=== PATIENT | male | born 1950 | race Caucasian/White ===

== ENCOUNTER 2016-08-22 13:38 | Observation (INO) | payer OTHER, MEDICARE ==
[2016-08-22] MEDS ORDERED: IBUPROFEN 400 MG TABLET PO ONE (13:49)
[2016-08-22 14:13] LABS: Hemoglobin 15.1 gm/dL (13.5-18.0); Mean Cell Volume 91.6 fl (78-100); Mean Corpuscular Hemoglobin 30.8 pg (27-31); Mean Corpuscular Hgb Conc 33.6 g/dl (32-36); Mean Platelet Volume 9.6 fl (6.0-9.5); Neutrophil # 13.7 K/mm3 (1.3-6.0); Neutrophil % 83.4 % (42-75.0); Platelet Count 200 K/mm3 (150-450); Red Blood Count 4.91 M/mm3 (4.7-6.0); Red Cell Distribution Width 14.6 % (11.5-14.0); White Blood Count 16.4 K/mm3 (4.0-10.5)
[2016-08-22 14:22] LABS: BUN/Creatinine Ratio 14.5 (9.0-21.6); Blood Urea Nitrogen 16 mg/dL (6-23); Calcium * 9.6 mg/dL (7.9-10.9); Carbon Dioxide 24.4 mmol/L (24-32.6); Chloride 103 mmol/L (97-106); Glucose * 171 mg/dL (70-110); Potassium 5.4 mmol/L (3.4-4.6); Sodium 138 mmol/L (132-142)
[2016-08-22] MEDS ORDERED: IBUPROFEN 400 MG TABLET ONE (14:58)
[2016-08-22 15:20] LABS: ALT 34 U/L (19-67); AST 28 U/L (0-48); Albumin * 3.6 gm/dl (3.4-5.0); Alkaline Phosphatase * 86 U/L (50-170); Bilirubin, Total 0.7 mg/dL (0.0-1.1); Ca. Corrected For Albumin 9.6 mg/dL (8.4-10.2); Total Protein 7.9 gm/dL (6.2-8.2)
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
[2016-08-22] MEDS ORDERED: NORMAL SALINE 1,000 ML IV ONE ×2 (15:28→18:28)
[2016-08-22] MEDS ORDERED: RINGERS SOLUTION,LACTATED 1,000 ML IV ONE (16:45)
[2016-08-22 19:11] LABS: Urine Appearance Clear; Urine Color Yellow
[2016-08-22 19:12] LABS: Urine Bacteria 1+; Urine Bilirubin Negative (NEGATIVE); Urine Blood Negative /ul (NEGATIVE); Urine Ketone Negative (NEGATIVE); Urine Nitrite Negative (NEGATIVE); Urine Protein Negative (NEGATIVE); Urine RBC None Seen /hpf (0-5); Urine Urobilinogen Normal (NORMAL); Urine WBC 0-5 /hpf (0-5); Urine pH 5.5 pH (5.0-7.0)
[2016-08-22] MEDS ORDERED: COLCHICINE 0.6 MG TABLET PO PRN (20:52)
[2016-08-22] MEDS ORDERED: HYDROPHILIC OINTMENT 454 APPL JAR TP PRN (20:52)
[2016-08-22] MEDS ORDERED: ACETAMINOPHEN 325 MG TABLET PO PRN (20:54)
[2016-08-22] MEDS ORDERED: CYANOCOBALAMIN 1,000 MCG/ML VIAL IM SCH (21:00)
[2016-08-22] MEDS ORDERED: SIMVASTATIN 20 MG TABLET PO SCH (21:00)
[2016-08-22] MEDS ORDERED: CAPSAICIN 60 APPL TUBE TP PRN (22:21)
--- NOTE | 2016-08-22 22:23 | HP ---
Chief Complaint - Chief Complaint Date of Service: 08/22/16 Time of Service: 22:20 Chief Complaint: s/p fall History of Present Illness: Pt is 66 year old male who is usually seen at the [place] for all his care who presented to the ER with left knee pain s/p fall. PMH is significant for:COPD, MONTY (on CPAP, ) He states he fell Tuesday afternoon, landing on his left knee. He states that he was stuck down landing on his bent knee for about 20minutes. Following this incident he was able to ambulate on the leg, although he admits never having very good ROM or being able to ambulate very far d/t dyspnea. Pt woke up Tuesday around 10am and was unable to bear weight on his leg. Stating it took him almost twenty minutes to get from his bedroom to living room. Once he finally made it out there he attempted to turn around and sit in his recliner, but unfortunately his leg gave out and he slide onto the floor and was unable to get up. He had been applying ice and Bengay on it without relief. Does endorse years ago injuring the same leg when he stepped into a hole. He currently uses a four pronged cane to ambulate. Knee xray showed sever arthritic changes, however no acute processes. He will be admitted to observation overnight for pain management and PT. - Patient's Past Medical History Patient History - Medical: Arthritis, Diabetes Type 2 Insulin Dependent, Obesity , Other - neuropathy Patient History - Cardiac/Respiratory: COPD, Hypertension, Hyperlipidemia, Home O2 Use - 3L PRN, CPAP/BiPAP Home Use, Sleep Apnea Patient History - Cancer: No Hx of Cancer Patient History - Surgical Procedures: Other - R knee surgery Patient History - Other: None - Family History Mother Family History - Medical: Family History - Cardiac/Respiratory: No pertinent hx Family History - Cancer: Bone, Breast Father Family History - Medical: Family History - Cardiac/Respiratory: Coronary Heart Disease, CHF, Valvular Heart Disease - Social History Living Situations: home Does anyone smoke in the home?: No Smoking Status: Former smoker Have you smoked in the past 12 months: No Do you dip or chew tobacco: No Smoking Stop Date: 08/16/16 Patient requests Smoking Cessation Consult: No Initiate information on Smoking Cessation: No Alcohol Use: none Drug Use: none - Immunizations Immunizations Up to Date: Yes Hx Pneumococcal Vaccination: Yes History of Influenza Vaccine: Yes Review Of Systems (GEN) - Review of Systems Generalized/Overall Review: Present: No Symptoms Reported EENTM: Present: No Symptoms Reported Respiratory: Present: Shortness of Breath, Orthopnea, Wheezing Abdominal: Present: No Symptoms Reported Genitourinary: Present: No Symptoms Reported Musculoskeletal: Present: Joint Pain - right knee Neurological: Present: No Symptoms Reported Skin: Present: No Symptoms Reported Allergies/Adverse Reactions: Allergies Allergy/AdvReac Type Severity Reaction Status Date / Time penicillin G Allergy Unknown Hives Verified 08/22/16 23:53 Home Medications: HOME MEDICATIONS Albuterol Sulfate 2.5 mg IH TID PRN 05/08/13 [Last Taken Unknown] Colchicine 0.6 mg PO BID PRN 05/08/13 [Last Taken Unknown] Cyanocobalamin [Vitamin B-12] 1,000 mcg IM Q30D 05/08/13 [Last Taken 05/07/13 08 :00] Furosemide [Lasix] 20 mg PO DAILY 05/08/13 [Last Taken 05/06/13 22:00] HYDROcodone/ACETAMINOPHEN [Vicodin 5-325] 1 each PO Q4H PRN 05/08/13 [Last Taken 05/07/13 22:30] Hydrophilic Ointment [Aquaphilic Ointment] 1 appl TP BID PRN 05/08/13 [Last Taken Unknown] Insulin Aspart [Novolog] 40 unit SQ AC 05/08/13 [Last Taken 05/07/13 22:00] Insulin Glargine,Hum.rec.anlog [Lantus Solostar] 68 unit SQ BID 05/08/13 [Last Taken 05/07/13 22:00] Lisinopril [Zestril] 5 mg PO DAILY 05/08/13 [Last Taken 05/08/13 08:00] Ofloxacin [Floxin Otic] 3 drop EACH EAR BID 05/08/13 [Last Taken Unknown] Pregabalin [Lyrica] 100 mg PO BID 05/08/13 [Last Taken 05/08/13 08:00] Simvastatin [Zocor] 10 mg PO HS 05/08/13 [Last Taken 05/07/13 22:00] Tamsulosin HCl 0.4 mg PO DAILY 05/08/13 [Last Taken 05/08/13 08:00] Tiotropium [place] [Spiriva] 1 cap IH DAILY 05/08/13 [Last Taken 05/07/13 22:00] Trazodone HCl 100 mg PO HS 05/08/13 [Last Taken 05/08/13 00:00] Capsaicin 1 appl TP TID PRN 05/09/13 [Last Taken Unknown] Miconazole Nitrate 1 appl TP BID 05/09/13 [Last Taken Unknown] Mometasone/Formoterol [Dulera 100 Mcg/5 Mcg Inhaler] 1 inh IH BID 05/09/13 [ Last Taken Unknown] metFORMIN HCL [Glucophage] 1,000 mg PO BIDWM 05/09/13 [Last Taken Unknown] Cefuroxime Axetil [Ceftin] 500 mg PO BID #20 tab 08/22/16 [Last Taken Unknown] Exam - Exam Vital Signs: Vital Signs - Last Taken Temp 38.2 C H 08/22/16 14:31 Pulse 91 08/22/16 20:23 Resp 14 08/22/16 20:23 BP 111/46 08/22/16 20:23 Pulse Ox 94 08/22/16 20:23 Constitutional: Present: Alert, Oriented x3, Cooperative, No distress, Morbidly obese ENT Exam: Present: normal ENT inspection, hard of hearing, dry mucous membranes Eye Exam: bilateral eye: normal inspection, PERRL Respiratory: Present: chest non-tender, no accessory muscle use, decreased breath sounds, wheezing, expiration (prolonged) Cardiovascular/Chest: Present: normal peripheral pulses, regular rate, rhythm, no chest tenderness, no edema, no murmur Peripheral Pulses: dorsalis-pedis (R): 2+, dorsalis-pedis (L): 2+, radial (R): 2 +, radial (L): 2+ Abdomen: Present: Normal bowel sounds, soft, nontender, nondistended, no rebound tenderness Skin Exam: Present: normal color, warm/dry, no cyanosis Neurologic: Present: no motor/sensory deficits, alert, normal mood/affect, oriented x 3 Appearance: Present: appropriate appearance, appropriate insight, neat, no memory impairment Eye contact: Present: cooperative, good eye contact, normal speech Thoughts: Present: normal thought pattern, no apparent hallucination Diagnostic Studies: Laboratory Results Laboratory Tests 0108/22/16 08/22/16 14:07 14:07 14:07 WBC 16.4 H Hgb 15.1 Hct 45.0 Neutrophils % 83.4 H Neutrophils # 13.7 H Sodium 138 Potassium 5.4 H BUN 16 Creatinine 1.10 Random Glucose 171 H Lactic Acid, Venous 2.3 H* Creatine Kinase Urine Bacteria Influenza Type A Ag Influenza Type B Ag Group A Strep Rapid 08/22/16 08/22/16 08/22/16 14:07 15:00 15:12 WBC Hgb Hct Neutrophils % Neutrophils # Sodium Potassium BUN Creatinine Random Glucose Lactic Acid, Venous Creatine Kinase 491 H Urine Bacteria Influenza Type A Ag Negative Influenza Type B Ag Negative Group A Strep Rapid Negative 08/22/16 08/22/16 08/22/16 17:56 18:49 19:40 WBC Hgb Hct Neutrophils % Neutrophils # Sodium Potassium BUN Creatinine Random Glucose Lactic Acid, Venous 2.3 H* 1.7 Creatine Kinase Urine Bacteria 1+ H Influenza Type A Ag Influenza Type B Ag Group A Strep Rapid Assessment/Plan - Assessment/Plan (1) Left knee injury Assessment: Pt unable to bear weight on lower extremity. Due to morbid obesity, pt is unable to ambulate safely on one leg, will be admitted to observation overnight for safety. No acute abnormalities noted on the xray. Severe arthritis noted however. Will treat with RICE. Consult PT/OT in the am. CM consult to assist with further needs since [facility] is [facility]. -Elevate on 2 pills -Markel wrap -Ice PRN -Ibuprofen PRN for pain -PT/OT consult -CM consult Problem: Acute (2) MONTY (obstructive sleep apnea) Assessment: Stable -CPAP at home setting HS -maintain o2 >88% Problem: Chronic (3) DM2 (diabetes mellitus, type 2) Assessment: Stable -Accu checks ac/hs -Consistent carb diet -Lantus 68units BID -Novolog 40units AC -Glucophage 1000mg daily Problem: Chronic (4) HTN (hypertension) Assessment: Stable -VS Q6H -Zestril 5mg Q day Problem: Acute (5) COPD (chronic obstructive pulmonary disease) Assessment: Stable -Spirica 1puff Qday -Bulera BID -Albuterol PRN wheezing Problem: Chronic (6) UTI (urinary tract infection) Assessment: UA with only +1 bacteria, no other s/s of infection. Pt is without polyuria, dysuria, or flank pain, procalcitonin .06. Do not suspect UTI, will dc antibiotics. Leukocytosis, lactic acidosis with gap, and elevated CK likely the from pt being down for an extended period of time although do not suspect rhabdomyolysis. Will treat with IVF over night. Bojorquez in place draining clear yellow urine for accurate I/O. -Bojorquez -Strict i/o -MIVF NS 125ml/hr -DC antibiotics -CBC/CMP, CK in am -Urine culture pending Problem: Suspected (7) Morbid obesity Problem: Chronic
[2016-08-22] MEDS ORDERED: ALBUTEROL SULFATE 2.5 MG/0.5 ML VIAL.NEB IH PRN (22:30)
[2016-08-23] MEDS: PREGABALIN 50 MG CAPSULE PO SCH ×3 (00:04→20:22)
[2016-08-23] MEDS: traZODone HCL 50 MG TABLET PO SCH ×2 (00:05→20:22)
[2016-08-23] MEDS: MICONAZOLE NITRATE 30 APPL TUBE TP SCH ×3 (00:10→20:23)
[2016-08-23] MEDS: HYDROcodone/ACETAMINOPHEN 1 EACH TABLET PO PRN ×3 (00:31→17:22)
[2016-08-23] MEDS: NORMAL SALINE 1,000 ML IV PRN ×2 (00:35→08:43)
[2016-08-23 05:32] LABS: Hemoglobin 13.7 gm/dL (13.5-18.0); Mean Cell Volume 92.1 fl (78-100); Mean Corpuscular Hemoglobin 30.8 pg (27-31); Mean Corpuscular Hgb Conc 33.4 g/dl (32-36); Mean Platelet Volume 9.9 fl (6.0-9.5); Neutrophil # 9.7 K/mm3 (1.3-6.0); Neutrophil % 74.2 % (42-75.0); Platelet Count 186 K/mm3 (150-450); Red Blood Count 4.45 M/mm3 (4.7-6.0); Red Cell Distribution Width 14.6 % (11.5-14.0)
[2016-08-23 05:56] LABS: Anion Gap 15.6 mmol/L (6.8-13.8); BUN/Creatinine Ratio 16.1 (9.0-21.6); Carbon Dioxide 22.9 mmol/L (24-32.6); Estimated Creat Clear 80.2; Potassium 4.5 mmol/L (3.4-4.6)
[2016-08-23] MEDS ORDERED: ALBUTEROL SULFATE/IPRATROPIUM 3 ML NEBU IH ONE ×2 (07:00→07:02)
[2016-08-23] MEDS ORDERED: MAGNESIUM HYDROXIDE 30 ML UDC PO ONE (07:00)
[2016-08-23] MEDS: INSULIN ASPART 100 UNITS/ML VIAL SC SCH ×3 (07:22→17:14)
[2016-08-23] MEDS: IBUPROFEN 400 MG TABLET PO SCH ×3 (07:22→18:38)
[2016-08-23] MEDS: FLUTICASONE/SALMETEROL 14 PUFF DISK.W.DEV IH SCH ×2 (08:47→20:22)
[2016-08-23] MEDS: LISINOPRIL 5 MG TABLET PO SCH (08:47)
[2016-08-23] MEDS: INSULIN GLARGINE,HUM.REC.ANLOG 100 UNITS/ML VIAL SC SCH ×2 (08:47→20:18)
[2016-08-23] MEDS: TIOTROPIUM BROMIDE 5 CAP INHALER IH SCH (08:48)
[2016-08-23] MEDS ORDERED: LISINOPRIL 10 MG TABLET PO SCH (09:00)
[2016-08-23] MEDS ORDERED: CEFUROXIME AXETIL 500 MG TABLET PO SCH (09:00)
[2016-08-23] MEDS ORDERED: TAMSULOSIN HCL 0.4 MG CAP.SR.24H PO SCH (09:00)
[2016-08-23] MEDS: TAMSULOSIN HCL 0.4 MG CAP.SR.24H PO SCH (18:39)
[2016-08-23] MEDS: SENNOSIDES/DOCUSATE SODIUM 1 TAB TABLET PO SCH (20:22)
[2016-08-23] MEDS: SIMVASTATIN 10 MG TABLET PO SCH (20:22)
[2016-08-24] MEDS: IBUPROFEN 400 MG TABLET PO SCH ×4 (00:45→19:07)
[2016-08-24] MEDS: INSULIN ASPART 100 UNITS/ML VIAL SC SCH ×4 (07:23→18:39)
[2016-08-24] MEDS: PREGABALIN 50 MG CAPSULE PO SCH ×2 (09:17→21:01)
[2016-08-24] MEDS: LISINOPRIL 5 MG TABLET PO SCH (09:18)
[2016-08-24] MEDS: FLUTICASONE/SALMETEROL 14 PUFF DISK.W.DEV IH SCH (09:19)
[2016-08-24] MEDS: TIOTROPIUM BROMIDE 5 CAP INHALER IH SCH (09:20)
[2016-08-24] MEDS: INSULIN GLARGINE,HUM.REC.ANLOG 100 UNITS/ML VIAL SC SCH (09:23)
[2016-08-24] MEDS: HYDROcodone/ACETAMINOPHEN 1 EACH TABLET PO PRN ×2 (09:24→18:09)
[2016-08-24] MEDS: MICONAZOLE NITRATE 30 APPL TUBE TP SCH ×2 (09:26→20:50)
[2016-08-24] MEDS: CIPROFLOXACIN HCL 500 MG TABLET PO SCH ×2 (10:27→20:49)
--- NOTE | 2016-08-24 16:26 | PN ---
Subjective - Date and Time Seen Date: 08/23/16 Time: 08:30 Subjective Narrative: Has problems in ambulating and difficulty in bearing weight. X-ray negative for fracture. Patient would like to be transferred to the hospital due to lack of other insurance. Denies any urinary symptoms. Does have a catheter placed in the ER. Objective - Review of Systems Generalized/Overall Review: Denies: Weakness, Chills, Fever Cardiac: Denies: Chest Pain, Edema - Vitals Vitals: Vital Signs 08/23/16 06:00 Temperature 36.8 C Pulse Rate 87 Respiratory 20 Rate Blood Pressure 104/66 O2 Sat by Pulse 92 Oximetry - Abnormal Lab Findings Abnormal Lab Findings: Laboratory Tests 08/23/16 05:20 WBC 13.0 H D Hgb 13.7 Hct 41.0 L Plt Count 186 08/23/16 05:20 Plasma Sodium 139 Potassium 4.5 Chloride 104 Carbon Dioxide 22.9 L BUN 15 Creatinine 0.93 Est GFR (Non-Af Amer) 87 D Random Glucose 154 H Creatine Kinase 227 Microbiology 08/22/16 18:47 Urine,Catheterized >100,000 Gm negative organisms. - Exam Constitutional: Present: Alert, Oriented x3, Cooperative, Middle aged, Morbidly obese, Looks Older than stated age ENT Exam: Present: hearing grossly normal, moist mucous membranes Respiratory: Present: no respiratory distress, no accessory muscle use, decreased breath sounds Cardiovascular/Chest: Present: regular rate, rhythm. Absent: tachycardia Abdomen: Present: Normal bowel sounds, soft - Morbidly obese, nontender Cauti Physician Documentation - Urinary Catheter Management Urethral (Bojorquez) Reason for Continuing Indwelling Catheter: Decision made to DC Date of Insertion: 08/22/16 Time of Insertion: 18:55 Date of Removal: 08/23/16 Time of Removal: 17:28 Assessment/Plan Plan Narrative: 1. History of fall with left knee pain. Pain control and ambulate with PT. Awaiting transfer to the [facility] 2. Possible UTI/asymptomatic bacteriuria. Awaiting culture and sensitivity. 3. Hypertension: Chronic and stable. 4. Type 2 diabetes mellitus: Chronic and stable. 5. Morbid obesity with sleep apnea: On CPAP.
--- NOTE | 2016-08-24 16:55 | PN ---
Subjective - Date and Time Seen Date: 08/24/16 Time: 16:45 Objective Objective Narrative: Patient's condition remains unchanged. Requiring a Tanja lift for him to move; continues to have difficulty in ambulating. Patient has frequency in urination w/o dysuria and other symptoms. Still waiting to hear from the [facility]. - Review of Systems Respiratory: Denies: Cough, Shortness of Breath Cardiac: Denies: Chest Pain, Edema Musculoskeletal Complaints: Reports: Joint Pain - Knee pain - Vitals Vitals: Vital Signs Temp 36.5 C 08/24/16 15:01 Pulse 83 08/24/16 15:01 Resp 18 08/24/16 15:01 BP 115/51 08/24/16 15:01 Pulse Ox 94 08/24/16 15:01 - Exam Constitutional: Present: Alert, Oriented x3, Cooperative, No distress, Middle aged, Morbidly obese, Looks Older than stated age Respiratory: Present: no respiratory distress, no accessory muscle use, decreased breath sounds Cardiovascular/Chest: Present: regular rate, rhythm. Absent: tachycardia Abdomen: Present: Normal bowel sounds, soft, nontender - Morbidly obese with pannus Cauti Physician Documentation - Urinary Catheter Management Urethral (Bojorquez) Date of Insertion: 08/22/16 Time of Insertion: 18:55 Date of Removal: 08/23/16 Time of Removal: 17:28 Assessment/Plan Plan Narrative: 1. History of fall with left knee pain. Pain control and ambulate with PT. Awaiting transfer to the [facility] 2. UTI/asymptomatic bacteriuria: Citrobacter freundii > 100,000 organisms. Ciprofloxacin 500 mg PO BID 3. Hypertension: Chronic and stable. 4. Type 2 diabetes mellitus: Chronic and stable. 5. Morbid obesity with sleep apnea: On CPAP.
[2016-08-24] MEDS ORDERED: INSULIN ASPART 100 UNITS/ML VIAL SC SCH (17:35)
[2016-08-24] MEDS: TAMSULOSIN HCL 0.4 MG CAP.SR.24H PO SCH (19:07)
[2016-08-24 19:34] VITALS: BP 114/42
[2016-08-24] MEDS: traZODone HCL 50 MG TABLET PO SCH (20:49)
[2016-08-24] MEDS: SENNOSIDES/DOCUSATE SODIUM 1 TAB TABLET PO SCH (20:50)
[2016-08-24] MEDS: SIMVASTATIN 10 MG TABLET PO SCH (20:50)
[2016-08-24] MEDS ORDERED: INSULIN GLARGINE,HUM.REC.ANLOG 100 UNITS/ML VIAL SC SCH (21:00)
[2016-08-24] MEDS ORDERED: FLUTICASONE/SALMETEROL 14 PUFF DISK.W.DEV IH SCH (21:00)
[2016-08-25 06:31] LABS: CK-BB Fraction 0 % (NONE DETECTED); CK-MB Fraction 0 % (<5)
[2016-08-25 06:31] LABS: CK-BB Fraction 0 % (NONE DETECTED); CK-MB Fraction 0 % (<5)
[2016-08-25 08:08] LABS: Total CK 442 U/L (44-196)
[2016-08-25 08:12] LABS: Total CK 214 U/L (44-196)
== END 2016-08-24 21:50 | disposition short-term general hospital (02) ==
LOC: ER 13:38 → MS 20:40
PROVIDERS: ADMIT Nurse Practitioner Gerontology; ATTEND Internal Medicine
DX: S80.02XA Contusion of left knee, initial encounter (principal); M17.12 Unilateral primary osteoarthritis, left knee; N39.0 Urinary tract infection, site not specified; B96.89 Other specified bacterial agents as the cause of diseases classified elsewhere; E11.9 Type 2 diabetes mellitus without complications; I10 Essential (primary) hypertension; G47.33 Obstructive sleep apnea (adult) (pediatric); E66.01 Morbid (severe) obesity due to excess calories; J44.9 Chronic obstructive pulmonary disease, unspecified; Z87.891 Personal history of nicotine dependence; Z79.4 Long term (current) use of insulin
CPT/HCPCS: 36415; 71010; 73030; 73502; 73562; 80048; 80053; 81001; 82550; 82552; 83605; 83874; 84145; 85025; 87040; 87081; 87086; 87400; 87430; 94640; 94660; 96365; 96372; 97110; 97161; 97530; 99284; G0378; G8978; G8979; G8980

== ENCOUNTER 2018-12-27 19:51 | Inpatient (IN) ==
--- NOTE | 2018-12-27 20:11 | ERNOTE ---
Trauma/Assault HPI - General Stated Complaint: FALL Time Seen by Provider: 12/27/18 19:58 Source: patient, EMS Exam Limitations: no limitations - Immun/Allergies/Home Medications Immunizations: IMMUNIZATION HX Immunizations Up to Date Yes History of Influenza Vaccine Yes Hx Pneumococcal Vaccination Yes Allergies/Adverse Reactions: Allergies penicillin G Allergy (Unknown, Verified 12/27/18 20:00) Hives Home Medications: HOME MEDICATIONS Albuterol Sulfate 2.5 mg IH TID PRN 05/08/13 [Last Taken Unknown] Colchicine 0.6 mg PO BID PRN 05/08/13 [Last Taken Unknown] Cyanocobalamin [Vitamin B-12] 1,000 mcg IM Q30D 05/08/13 [Last Taken 05/07/13 08:00] Furosemide [Lasix] 20 mg PO DAILY 05/08/13 [Last Taken 05/06/13 22:00] HYDROcodone/ACETAMINOPHEN [Vicodin 5-325] 1 each PO Q4H PRN 05/08/13 [Last Taken 05/07/13 22:30] Hydrophilic Ointment [Aquaphilic Ointment] 1 appl TP BID PRN 05/08/13 [Last Taken Unknown] Insulin Aspart [Novolog] 40 unit SQ AC 05/08/13 [Last Taken 05/07/13 22:00] Insulin Glargine,Hum.rec.anlog [Lantus Solostar] 68 unit SQ BID 05/08/13 [Last Taken 05/07/13 22:00] Lisinopril [Zestril] 5 mg PO DAILY 05/08/13 [Last Taken 05/08/13 08:00] Pregabalin [Lyrica] 100 mg PO BID 05/08/13 [Last Taken 05/08/13 08:00] Simvastatin [Zocor] 10 mg PO HS 05/08/13 [Last Taken 05/07/13 22:00] Tamsulosin HCl 0.4 mg PO DAILY 05/08/13 [Last Taken 05/08/13 08:00] Tiotropium [place] [Spiriva] 1 cap IH DAILY 05/08/13 [Last Taken 05/07/13 22:00] Trazodone HCl 100 mg PO HS 05/08/13 [Last Taken 05/08/13 00:00] Capsaicin 1 appl TP TID PRN 05/09/13 [Last Taken Unknown] Miconazole Nitrate 1 appl TP BID 05/09/13 [Last Taken Unknown] Mometasone/Formoterol [Dulera 100 Mcg/5 Mcg Inhaler] 1 inh IH BID 05/09/13 [Last Taken Unknown] metFORMIN HCL [Glucophage] 1,000 mg PO BIDWM 05/09/13 [Last Taken Unknown] Cefuroxime Axetil [Ceftin] 500 mg PO BID #20 tab 08/22/16 [Last Taken Unknown] - History of Present Illness Narrative: Patient states he has fallen 3-4 times today. His knees just give out on him. He states that usually when he gets like this he is generally septic. He has had a infection in the right lower leg where he has abrasions from previous falls. He was seen at the [facility] in [place] yesterday and placed on antibiotics for this. According to his POA patient falls frequently and today was not the only times. She states that he does not take care of himself well and will not let her come and help him more than twice a week. Location Occurred: Reports: home Pain Location: Reports: lower extremity Method of Injury: Reports: fall Severity: mild Modifying Factors - (Improves): Reports: rest Modifying Factors - (Worsens): Reports: movement Loss of Consciousness: Reports: no loss of consciousness Associated Symptoms - Trauma: Denies: headache, confusion Review of Systems - Review of Systems Constitutional: Absent: recent illness, chills EYE: Absent: vision changes ENT: Absent: nose congestion, nasal drainage Respiratory: Absent: shortness of breath, cough Cardiology: Absent: chest pain Gastrointestinal/Abdominal: Absent: nausea, vomiting, abdominal pain Genitourinary: Present: frequency. Absent: dysuria Skin: Present: other - abrasions, new and old on b/l LE. Neurological: Present: no symptoms reported Endocrine: Absent: excessive sweating Hematologic/Lymphatic: Present: easy bruising, easy bleeding Medical History (Updated 12/27/18 @ 23:22 by Florian Gaytan DO) COPD (chronic obstructive pulmonary disease) Diabetes HTN (hypertension) Multiple falls Sleep apnea Surgical History: Surgical History (Updated 12/28/18 @ 01:14 by Nu Hale RN) H/O right knee surgery Family History: Family History (Last Updated 05/30/19 @ 01:15 by Nu Hale RN) Mother Bone cancer Breast cancer Social History: Preferred Language Malawian Do you have any hoahaoism or No cultural preference? Smoking Status Former smoker Abuse History No History of abuse Psych History Hx of Depression Alcohol Use none Drug Use none No Social History Section defined Physical Exam - Physical Exam General Appearance: Present: wd/wn, alert, no apparent distress Head Exam: Present: normal inspection, no evidence of injury Neck: Present: normal inspection, nontender, supple Respiratory: Present: no respiratory distress, no accessory muscle use, chest nontender, lungs clear Cardiovascular/Chest: Present: regular rate, rhythm, no murmur Gastrointestinal/Abdominal: Present: normal bowel sounds, nontender, nondistended, soft - obese Extremity Exam: Present: extremity edema - b/l. Absent: joint redness Neurological Exam: Present: alert, oriented, normal mood/affect, no motor/sensory deficits Skin Exam: Present: other - abrasions anterior tib and knees b/l. Left knee scab is slightly displaced. Right knee scab is partially torn off and there was some bleeding that has stopped. - C-Spine cleared by: Neg history & exam - T, L-Spine cleared by: Neg hx and exam Progress - Results and Orders Patient's Lab Results:: I have reviewed the patient's lab results. Results and Orders: Laboratory Tests 12/27/18 12/27/18 12/27/18 20:27 20:27 20:27 WBC 16.2 H Hgb 14.1 Hct 42.3 Plt Count 171 Neutrophils % 85.6 H Sodium 132 Potassium 4.6 Chloride 97 BUN 22 Creatinine 1.18 Random Glucose 200 H Lactic Acid, Venous 1.4 Calcium 9.2 Total Bilirubin 0.9 AST 15 ALT 32 Alkaline Phosphatase 94 Urine Color Urine pH Ur Specific [place] Urine Protein Urine Glucose (UA) Urine Ketones Urine Blood Urine Nitrate Ur Leukocyte Esterase Urine RBC Urine WBC Urine Bacteria Urine Culture Comments 12/27/18 21:59 WBC Hgb Hct Plt Count Neutrophils % Sodium Potassium Chloride BUN Creatinine Random Glucose Lactic Acid, Venous Calcium Total Bilirubin AST ALT Alkaline Phosphatase Urine Color Yellow Urine pH 6.0 Ur Specific [place] 1.020 Urine Protein 30 H Urine Glucose (UA) Negative Urine Ketones 15 Urine Blood 50 H Urine Nitrate Negative Ur Leukocyte Esterase 75 H Urine RBC 5-10 H Urine WBC Trace Urine Bacteria 1+ H Urine Culture Comments Culture to follow - Vital Signs Patient's Vital Signs:: I have reviewed the patient's vital signs. Vital Signs: Vital Signs 12/27/18 19:56 Temperature 39.5 C H Pulse Rate 98 Respiratory Rate 15 Blood Pressure 140/61 O2 Sat by Pulse Oximetry 94 - X-Ray X-Ray #1 X-Ray: chest Interpretation: Reviewed by me X-ray Comments: IMPRESSION: NO ACUTE CARDIOPULMONARY DISEASE IDENTIFIED. X-Ray #2 X-Ray: knee Interpretation: Reviewed by me X-ray Comments: IMPRESSION: MODERATE TO SEVERE ARTHRITIC CHANGES. NO ACUTE OSSEOUS PATHOLOGY OTHERWISE IDENTIFIED. Electronically signed by Peterson Danielson M.D.. X-Ray #3 X-Ray: abdomen Interpretation: Reviewed by me X-ray Comments: IMPRESSION: NO ACUTE OSSEOUS PATHOLOGY IDENTIFIED WITH FINDINGS DISCUSSED. Electronically signed by Peterson Danielson M.D.. - Progress/Reassessment Progress:: Unchanged Progress Note-Subjective: 12/27/18 23:54 I spoke with Emeka on-call netbackup administrator yohana at the [facility] in [place] and he says they have no beds available and approve his admission here. I spoke with Dr. Harris he agrees with admission and IV antibiotics. Departure Clinical Impression: Falls UTI (urinary tract infection) Qualifiers: Urinary tract infection type: acute cystitis Hematuria presence: with hematuria Qualified Code(s): N30.01 - Acute cystitis with hematuria Cellulitis Qualifiers: Site of cellulitis: extremity Site of cellulitis of extremity: lower extremity Laterality: right Qualified Code(s): L03.115 - Cellulitis of right lower limb DM2 (diabetes mellitus, type 2) Qualifiers: Diabetes mellitus senior care insulin use: with manager intermediate use Diabetes mellitus complication status: with skin complications Diabetes mellitus complication detail: with other skin ulcer Qualified Code(s): E11.622 - Type 2 diabetes mellitus with other skin ulcer - Departure Disposition: Still a patient Condition: Stable Critical Care Time - Critical Care Critical Time Spent:: No
[2018-12-27 20:31] LABS: Hematocrit 42.3 % (42.0-52.0); Hemoglobin 14.1 gm/dL (13.5-18.0); Mean Cell Volume 95.7 fl (78-100); Mean Corpuscular Hemoglobin 31.9 pg (27-31); Mean Corpuscular Hgb Conc 33.3 g/dl (32-36); Mean Platelet Volume 9.4 fl (8-11.3); Neutrophil # 13.9 K/mm3 (1.3-6.0); Neutrophil % 85.6 % (42-75.0); Platelet Count 171 K/mm3 (150-450); Red Blood Count 4.42 M/mm3 (4.7-6.0); Red Cell Distribution Width 14.2 % (11.5-14.0); White Blood Count 16.2 K/mm3 (4.0-10.5)
[2018-12-27 20:44] LABS: Albumin * 3.3 gm/dl (3.4-5.0); Anion Gap 17.3 mmol/L (6.8-13.8); BUN/Creatinine Ratio 18.6 (9.0-21.6); Bilirubin, Total 0.9 mg/dL (0.0-1.1); Ca. Corrected For Albumin 9.4 mg/dL (8.4-10.2); Calcium * 9.2 mg/dL (7.9-10.9); Carbon Dioxide 22.3 mmol/L (24-32.6); Potassium 4.6 mmol/L (3.4-4.6); Total Protein 7.6 gm/dL (6.2-8.2)
[2018-12-27 22:03] LABS: Urine Bilirubin Negative (NEGATIVE); Urine Blood 50 /ul (NEGATIVE); Urine Ketone 15 mg/dL (NEGATIVE); Urine Nitrite Negative (NEGATIVE); Urine Protein 30 mg/dL (NEGATIVE); Urine Urobilinogen Normal (NORMAL)
[2018-12-27 22:14] LABS: Urine Amorphous Sediment Few - 1+ (NONE-FEW); Urine Appearance Slightly Cloudy (CLEAR); Urine Bacteria 1+; Urine Color Yellow; Urine WBC TRACE /hpf (0-5)
[2018-12-27] MEDS ORDERED: ceFAZolin SODIUM 1 GM VIAL IV ONE (23:54)
[2018-12-28] MEDS: NORMAL SALINE 1,000 ML IV PRN ×2 (03:24→17:05)
[2018-12-28] MEDS: ACETAMINOPHEN 500 MG TABLET PO PRN (03:24)
[2018-12-28] MEDS ORDERED: HYDROcodone/ACETAMINOPHEN 1 EACH TABLET PO PRN (08:19)
[2018-12-28 09:25] LABS: Albumin * 2.9 gm/dl (3.4-5.0); Anion Gap 12.8 mmol/L (6.8-13.8); BUN/Creatinine Ratio 17.9 (9.0-21.6); Bilirubin, Total 0.9 mg/dL (0.0-1.1); Ca. Corrected For Albumin 9.4 mg/dL (8.4-10.2); Calcium * 8.8 mg/dL (7.9-10.9); Carbon Dioxide 25.4 mmol/L (24-32.6); Potassium 4.2 mmol/L (3.4-4.6); Total Protein 7.2 gm/dL (6.2-8.2)
[2018-12-28 09:28] LABS: Hematocrit 41.2 % (42.0-52.0); Hemoglobin 13.6 gm/dL (13.5-18.0); Mean Cell Volume 97.4 fl (78-100); Mean Corpuscular Hemoglobin 32.2 pg (27-31); Neutrophil # 10.2 K/mm3 (1.3-6.0); Neutrophil % 75.6 % (42-75.0); Platelet Count 166 K/mm3 (150-450); Red Blood Count 4.23 M/mm3 (4.7-6.0); Red Cell Distribution Width 14.6 % (11.5-14.0); White Blood Count 13.4 K/mm3 (4.0-10.5)
[2018-12-28 09:31] LABS: Total Cells Counted 100
[2018-12-28 09:42] LABS: Eosinophil 1 % (0-3); Lymphocyte 13 % (20-51); Monocyte 7 % (0-9); Neutrophil 79 % (42-75); Neutrophil # 10.6 K/mm3 (1.3-6.0)
[2018-12-28 09:43] LABS: Platelet Estimate Normal (NORMAL); RBC Morphology Normal (NORMAL)
[2018-12-28] MEDS: FLUTICASONE PROPION/SALMETEROL 14 PUFF DISK.W.DEV IH SCH ×2 (09:54→21:57)
[2018-12-28] MEDS: LISINOPRIL 5 MG TABLET PO SCH (09:54)
[2018-12-28] MEDS: FUROSEMIDE 20 MG TABLET PO SCH (09:55)
[2018-12-28] MEDS: TIOTROPIUM BROMIDE 5 CAP INHALER IH SCH (09:55)
[2018-12-28] MEDS: PREGABALIN 50 MG CAPSULE PO SCH ×2 (09:58→22:02)
[2018-12-28] MEDS: INSULIN GLARGINE,HUM.REC.ANLOG 100 UNITS/ML VIAL SC SCH ×2 (10:12→21:59)
[2018-12-28] MEDS: CEFUROXIME AXETIL 500 MG TABLET PO SCH ×2 (11:28→21:57)
[2018-12-28] MEDS: INSULIN ASPART 100 UNITS/ML VIAL SC SCH ×2 (11:31→17:11)
[2018-12-28] MEDS: TAMSULOSIN HCL 0.4 MG CAP.SR.24H PO SCH (18:40)
[2018-12-28] MEDS: traZODone HCL 50 MG TABLET PO SCH (21:57)
[2018-12-28] MEDS: SIMVASTATIN 10 MG TABLET PO SCH (21:57)
--- NOTE | 2018-12-28 23:55 | HP ---
Chief Complaint - Chief Complaint Date of Service: 12/28/18 Time of Service: 10:12 Chief Complaint: Leg swelling, redness, and pain History of Present Illness: Slade is a 68 yo male that presents to the [facility] ER with worsening right leg pain, swelling, and redness. He has had multiple falls over the past month and his must recent fall left abrasions to bilateral knee and bilateral king. All areas crusted over but the right king became more and more red, hot to touch, swollen, and painful. He was seen at the OR in [place] and started on oral antibiotics yesterday. He took his antibiotics but he continued to get more painful, weak, and red so he presented to the [facility] ER. He is currently unable to walk at all or stand for any significant amount of time. Medical History (Updated 12/28/18 @ 23:55 by Issa Harris DO) COPD (chronic obstructive pulmonary disease) Diabetes HTN (hypertension) Multiple falls Sleep apnea Surgical History: Surgical History (Updated 12/28/18 @ 01:14 by Nu Hale RN) H/O right knee surgery Family History: Family History (Last Updated 12/28/18 @ 01:15 by Nu Hale RN) Mother Bone cancer Breast cancer Social History: Patient Lives/Resources Home Utilized Occupation Retired Preferred Language Guyanese Do you have any yazidism or No cultural preference? Smoking Status Never smoker Have you smoked in the past 12 No months Do you dip or chew tobacco No Abuse History No History of abuse Psych History Hx of Depression Alcohol Use none Drug Use none No Social History Section defined Review Of Systems (GEN) - Review of Systems Generalized/Overall Review: Present: Weakness, Chills, Fatigue. Absent: Fever EENTM: Present: No Symptoms Reported Respiratory: Present: Cough, Shortness of Breath Cardiac: Present: Edema. Absent: Chest Pain, Palpitations, Syncope Abdominal: Absent: Nausea, Vomiting Genitourinary: Present: No Symptoms Reported Musculoskeletal: Present: Joint Pain, Muscle Pain Neurological: Present: Weakness Skin: Present: Change in Color Endocrine: Present: No Symptoms Reported Immunizations: IMMUNIZATION HX Immunizations Up to Date Yes History of Influenza Vaccine Yes Hx Pneumococcal Vaccination Yes Allergies/Adverse Reactions: Allergies Allergy/AdvReac Type Severity Reaction Status Date / Time penicillin G Allergy Unknown Hives Verified 12/27/18 20:00 Home Medications: HOME MEDICATIONS Albuterol Sulfate 2.5 mg IH TID PRN 05/08/13 [Last Taken Unknown] Furosemide [Lasix] 20 mg PO DAILY 05/08/13 [Last Taken 05/06/13 22:00] HYDROcodone/ACETAMINOPHEN [Vicodin 5-325] 1 each PO Q4H PRN 05/08/13 [Last Taken 05/07/13 22:30] Hydrophilic Ointment [Aquaphilic Ointment] 1 appl TP BID PRN 05/08/13 [Last Taken Unknown] Insulin Aspart [Novolog] 40 unit SQ AC 05/08/13 [Last Taken 12/28/18] Insulin Glargine,Hum.rec.anlog [Lantus Solostar] 68 unit SQ BID 05/08/13 [Last Taken 05/07/13 22:00] Lisinopril [Zestril] 10 mg PO DAILY 05/08/13 [Last Taken 05/08/13 08:00] Pregabalin [Lyrica] 150 mg PO BID 05/08/13 [Last Taken 12/28/18] Simvastatin [Zocor] 10 mg PO HS 05/08/13 [Last Taken 05/07/13 22:00] Tamsulosin HCl 0.4 mg PO DAILY 05/08/13 [Last Taken 12/28/18] Tiotropium [place] [Spiriva] 1 cap IH DAILY 05/08/13 [Last Taken 05/07/13 22:00] Trazodone HCl 50 mg PO HS 05/08/13 [Last Taken 12/27/18] Mometasone/Formoterol [Dulera 100 Mcg/5 Mcg Inhaler] 1 inh IH BID 05/09/13 [Last Taken Unknown] metFORMIN HCL [Glucophage] 1,000 mg PO BIDWM 05/09/13 [Last Taken 12/28/18] Cefuroxime Axetil [Ceftin] 500 mg PO BID #20 tab 08/22/16 [Last Taken Unknown] Allopurinol [Zyloprim] 300 mg PO DAILY 12/28/18 [Last Taken Unknown] Ascorbic Acid [Vitamin C] 500 mg PO BID 12/28/18 [Last Taken Unknown] Bupropion HCl [Wellbutrin Sr] 150 mg PO BID 12/28/18 [Last Taken 12/27/18] Capsaicin [High Potency Capsaicin] 42.5 gm TOPICAL QID PRN 12/28/18 [Last Taken Unknown] Cyanocobalamin [Vitamin B-12] 1,000 mcg IM ONCE 12/28/18 [Last Taken Unknown] Ferrous Sulfate 324 mg PO BID 12/28/18 [Last Taken 12/27/18] Sennosides/Docusate Sodium [Docusate Sodium-Senna Tablet] 1 ea PO Q12H PRN 12/28/18 [Last Taken Unknown] Exam - Exam Vital Signs: Vital Signs - Last Taken Temp 37.1 C 12/28/18 18:40 Pulse 83 12/28/18 18:40 Resp 18 12/28/18 18:40 BP 125/54 12/28/18 18:40 Pulse Ox 99 12/28/18 18:40 Constitutional: Present: Alert, Oriented x3, Cooperative ENT Exam: Present: hearing grossly normal Eye Exam: bilateral eye: normal inspection Respiratory: Present: decreased breath sounds, wheezing Cardiovascular/Chest: Present: regular rate, rhythm, no murmur Abdomen: Present: Normal bowel sounds, soft, nontender, nondistended, obese Extremity: Present: lower extremity edema - 2+ Skin Exam: Present: other - Crusted abrasions of bilateral knee and bilateral king. Left king being the largest and running the length of the tibia with surrounding erythema. No drainage. Diagnostic Studies: Abnormal Lab Results 12/28/18 12/28/18 Range/Units 08:50 08:50 WBC 13.4 H (4.0-10.5) K/mm3 RBC 4.23 L (4.7-6.0) M/mm3 Hct 41.2 L (42.0-52.0) % MCH 32.2 H (27-31) pg RDW 14.6 H (11.5-14.0) % Immature Gran % (Auto) 0.90 H (0.001-0.429) % Immature Gran # (Auto) 0.12 H (0.000-0.0310) K/mm3 Neutrophils % 75.6 H (42-75.0) % Neutrophils % (Manual) 79 H (42-75) % Lymphocytes % 10.3 L (20-51) % Lymphocytes % (Manual) 13 L (20-51) % Monocytes % 12.4 H (0.0-9) % Neutrophils # 10.2 H (1.3-6.0) K/mm3 Neutrophils # (Manual) 10.6 H (1.3-6.0) K/mm3 Lymphocytes # 1.39 L (1.5-3.5) k/mm3 Monocytes # 1.7 H (0.0-1.0) k/mm3 Random Glucose 216 H (70-110) mg/dL Albumin 2.9 L (3.4-5.0) gm/dl Microbiology 12/27/18 22:10 Blood Culture - Preliminary Blood NO GROWTH 24 HOURS 12/27/18 20:27 Blood Culture - Preliminary Blood NO GROWTH 24 HOURS Laboratory Results WBC 13.4 K/mm3 (4.0-10.5) H 12/28/18 08:50 RBC 4.23 M/mm3 (4.7-6.0) L 12/28/18 08:50 Hgb 13.6 gm/dL (13.5-18.0) 12/28/18 08:50 Hct 41.2 % (42.0-52.0) L 12/28/18 08:50 MCV 97.4 fl (78-100) 12/28/18 08:50 MCH 32.2 pg (27-31) H 12/28/18 08:50 MCHC 33.0 g/dl (32-36) 12/28/18 08:50 RDW 14.6 % (11.5-14.0) H 12/28/18 08:50 Plt Count 166 K/mm3 (150-450) 12/28/18 08:50 MPV 10.0 fl (8-11.3) 12/28/18 08:50 Immature Gran % (Auto) 0.90 % (0.001-0.429) H 12/28/18 08:50 Immature Gran # (Auto) 0.12 K/mm3 (0.000-0.0310) H 12/28/18 08:50 75.6 % (42-75.0) H 12/28/18 08:50 79 % (42-75) H 12/28/18 08:50 10.3 % (20-51) L 12/28/18 08:50 13 % (20-51) L 12/28/18 08:50 12.4 % (0.0-9) H 12/28/18 08:50 7 % (0-9) 12/28/18 08:50 0.1 % (0.0-3.0) 12/28/18 08:50 1 % (0-3) 12/28/18 08:50 0.7 % (0.0-1.0) 12/28/18 08:50 Nucleated RBC % 0.0 k/mm3 (0-1) 12/28/18 08:50 10.2 K/mm3 (1.3-6.0) H 12/28/18 08:50 10.6 K/mm3 (1.3-6.0) H 12/28/18 08:50 1.39 k/mm3 (1.5-3.5) L 12/28/18 08:50 1.7 k/mm3 (1.5-3.5) 12/28/18 08:50 1.7 k/mm3 (0.0-1.0) H 12/28/18 08:50 0.9 k/mm3 (0.0-1.0) 12/28/18 08:50 0.0 k/mm3 (0.0-0.7) 12/28/18 08:50 0.1 k/mm3 (0.0-0.7) 12/28/18 08:50 Absolute Basophils 0.1 k/mm3 (0.0-0.1) 12/28/18 08:50 Normal (NORMAL) 12/28/18 08:50 RBC Morphology Normal (NORMAL) 12/28/18 08:50 Sodium 135 mmol/L (132-142) 12/28/18 08:50 137 mmol/L (130-142) 12/28/18 08:50 Potassium 4.2 mmol/L (3.4-4.6) 12/28/18 08:50 Chloride 101 mmol/L (97-106) 12/28/18 08:50 Carbon Dioxide 25.4 mmol/L (24-32.6) 12/28/18 08:50 12.8 mmol/L (6.8-13.8) 12/28/18 08:50 BUN 22 mg/dL (6-23) 12/28/18 08:50 1.23 mg/dL (0.4-1.4) 12/28/18 08:50 Est GFR (Non-Af Amer) 63 mL/min (60-130) 12/28/18 08:50 17.9 (9.0-21.6) 12/28/18 08:50 216 mg/dL (70-110) H 12/28/18 08:50 1.4 mmol/L (0.4-2.0) 12/27/18 20:27 Calcium 8.8 mg/dL (7.9-10.9) 12/28/18 08:50 Calcium Adj for Albumin 9.4 mg/dL (8.4-10.2) 12/28/18 08:50 0.9 mg/dL (0.0-1.1) 12/28/18 08:50 AST 17 U/L (0-48) 12/28/18 08:50 ALT 29 U/L (19-67) 12/28/18 08:50 84 U/L (50-170) 12/28/18 08:50 7.2 gm/dL (6.2-8.2) 12/28/18 08:50 2.9 gm/dl (3.4-5.0) L 12/28/18 08:50 Yellow 12/27/18 21:59 Slightly cloudy (CLEAR) 12/27/18 21:59 6.0 pH (5.0-7.0) 12/27/18 21:59 Ur Specific [place] 1.020 SP.GR. (1.005-1.030) 12/27/18 21:59 30 mg/dL (NEGATIVE) H 12/27/18 21:59 Negative mg/dL (NEGATIVE) 12/27/18 21:59 15 mg/dL (NEGATIVE) 12/27/18 21:59 50 /ul (NEGATIVE) H 12/27/18 21:59 Negative (NEGATIVE) 12/27/18 21:59 Negative mg/dl (NEGATIVE) 12/27/18 21:59 Prot Sulfosalicylic Acd Negative mg/dL (0) 12/27/18 21:59 Normal EU/dl (NORMAL) 12/27/18 21:59 Ur Leukocyte Esterase 75 /ul (NEGATIVE) H 12/27/18 21:59 5-10 /hpf (0-5) H 12/27/18 21:59 Trace /hpf (0-5) 12/27/18 21:59 Ur Epithelial Cells 0-5 /hpf (0-5) 12/27/18 21:59 Amorphous Sediment Few - 1+ (NONE-FEW) 12/27/18 21:59 1+ (NONE) H 12/27/18 21:59 Culture to follow 12/27/18 21:59 Assessment/Plan - Narrative Narrative: Slade is a 68 yo male with cellulitis. He started his outpatient treatment but is continuing to decline. He is unable to treat this at home as he is now unsafe. He is unable to ambulate and perform any ADLs at home. His cellulitis has worsened despite attempting to treat as outpatient. He will be admitted to the hospital, will continue antibiotics and consult PT for strengthening. I suspect it will need more than 2 midnights of antibiotics and therapy to improve his condition well enough that he could be discharged to [facility]. - Assessment/Plan (1) Cellulitis Problem: Acute Qualifiers: Site of cellulitis: extremity Site of cellulitis of extremity: lower extremity Laterality: right Qualified Code(s): L03.115 - Cellulitis of right lower limb (2) Lower extremity weakness Problem: Acute (3) Falls Problem: Acute (4) Morbid obesity Problem: Chronic
[2018-12-29 05:34] LABS: Hematocrit 39.9 % (42.0-52.0); Hemoglobin 13.4 gm/dL (13.5-18.0); Mean Cell Volume 95.7 fl (78-100); Mean Corpuscular Hemoglobin 32.1 pg (27-31); Mean Corpuscular Hgb Conc 33.6 g/dl (32-36); Mean Platelet Volume 9.9 fl (8-11.3); Neutrophil # 8.3 K/mm3 (1.3-6.0); Neutrophil % 77.2 % (42-75.0); Platelet Count 176 K/mm3 (150-450); Red Blood Count 4.17 M/mm3 (4.7-6.0); Red Cell Distribution Width 14.6 % (11.5-14.0); White Blood Count 10.8 K/mm3 (4.0-10.5)
[2018-12-29 05:44] LABS: Albumin * 2.9 gm/dl (3.4-5.0); Anion Gap 13.7 mmol/L (6.8-13.8); BUN/Creatinine Ratio 20.9 (9.0-21.6); Bilirubin, Total 0.6 mg/dL (0.0-1.1); Ca. Corrected For Albumin 9.4 mg/dL (8.4-10.2); Calcium * 8.8 mg/dL (7.9-10.9); Carbon Dioxide 23.7 mmol/L (24-32.6); Potassium 4.4 mmol/L (3.4-4.6); Total Protein 7.2 gm/dL (6.2-8.2)
[2018-12-29] MEDS: NORMAL SALINE 1,000 ML IV PRN (06:11)
[2018-12-29] MEDS: INSULIN ASPART 100 UNITS/ML VIAL SC SCH ×3 (07:12→17:01)
[2018-12-29] MEDS: CEFUROXIME AXETIL 500 MG TABLET PO SCH ×2 (10:21→21:02)
[2018-12-29] MEDS: FUROSEMIDE 20 MG TABLET PO SCH (10:22)
[2018-12-29] MEDS: LISINOPRIL 5 MG TABLET PO SCH (10:22)
[2018-12-29] MEDS: ACETAMINOPHEN 500 MG TABLET PO PRN ×2 (10:29→17:26)
[2018-12-29] MEDS: PREGABALIN 50 MG CAPSULE PO SCH ×2 (10:29→21:06)
[2018-12-29] MEDS: INSULIN GLARGINE,HUM.REC.ANLOG 100 UNITS/ML VIAL SC SCH ×2 (10:33→21:12)
[2018-12-29] MEDS: TIOTROPIUM BROMIDE 5 CAP INHALER IH SCH (10:33)
[2018-12-29] MEDS: FLUTICASONE PROPION/SALMETEROL 14 PUFF DISK.W.DEV IH SCH ×2 (10:33→21:02)
[2018-12-29] MEDS: TAMSULOSIN HCL 0.4 MG CAP.SR.24H PO SCH (17:26)
[2018-12-29] MEDS: ALBUTEROL SULFATE 2.5 MG/0.5 ML VIAL.NEB IH PRN (17:28)
[2018-12-29] MEDS: traZODone HCL 50 MG TABLET PO SCH (21:02)
[2018-12-29] MEDS: SIMVASTATIN 10 MG TABLET PO SCH (21:04)
--- NOTE | 2018-12-29 23:01 | PN ---
Subjective - Date and Time Seen Date: 12/29/18 Time: 11:30 Subjective Narrative: Slade continues to be extremely week and unable to walk. Unable to stand for any significant amount of time. Continues to have pain in lower legs. No nausea, vomiting, diarrhea. Objective - Vitals Vitals: Last Vital Signs Temp 37.8 C 12/29/18 18:06 Pulse 96 12/29/18 18:06 Resp 20 12/29/18 18:06 BP 127/62 12/29/18 18:06 Pulse Ox 95 12/29/18 18:06 - Abnormal Lab Findings Abnormal Lab Findings: Abnormal Lab Results 12/29/18 12/29/18 Range/Units 05:08 05:08 WBC 10.8 H (4.0-10.5) K/mm3 RBC 4.17 L (4.7-6.0) M/mm3 Hgb 13.4 L (13.5-18.0) gm/dL Hct 39.9 L (42.0-52.0) % MCH 32.1 H (27-31) pg RDW 14.6 H (11.5-14.0) % Immature Gran % (Auto) 0.50 H (0.001-0.429) % Immature Gran # (Auto) 0.05 H (0.000-0.0310) K/mm3 Neutrophils % 77.2 H (42-75.0) % Lymphocytes % 11.2 L (20-51) % Monocytes % 10.0 H (0.0-9) % Neutrophils # 8.3 H (1.3-6.0) K/mm3 Lymphocytes # 1.20 L (1.5-3.5) k/mm3 Monocytes # 1.1 H (0.0-1.0) k/mm3 Carbon Dioxide 23.7 L (24-32.6) mmol/L BUN 24 H (6-23) mg/dL Random Glucose 169 H (70-110) mg/dL Albumin 2.9 L (3.4-5.0) gm/dl - Exam Constitutional: Present: Alert, Oriented x3, Cooperative ENT Exam: Present: hearing grossly normal Respiratory: Present: decreased breath sounds, wheezing Cardiovascular/Chest: Present: regular rate, rhythm, no murmur Abdomen: Present: Normal bowel sounds, soft, nontender, obese Skin Exam: Present: other - crusted abrasions on bilateral knee. Left king erythematous and dry. Erythema is slightly faded compared to yesterday. Eye contact: Present: cooperative, good eye contact, normal speech Assessment/Plan Plan Narrative: Continue antibiotics. Continue therapy. Unsafe for home discharge as he is unable to even stand for any significant time due to weakness and pain of legs. - Problems/Diagnosis (1) Cellulitis Problem: Acute Qualifiers: Site of cellulitis: extremity Site of cellulitis of extremity: lower extremity Laterality: right Qualified Code(s): L03.115 - Cellulitis of right lower limb (2) Lower extremity weakness Problem: Acute (3) Falls Problem: Acute (4) Morbid obesity Problem: Chronic
[2018-12-30] MEDS: ACETAMINOPHEN 500 MG TABLET PO PRN ×2 (00:25→07:12)
--- NOTE | 2018-12-30 07:05 | PN ---
Subjective - Date and Time Seen Date: 12/30/18 Time: 07:04 Subjective Narrative: Reports feeling better. Less pain and swelling in his legs. Still weak in his legs. She slept in bed well and does not normally sleep in beds. No fever, chills, nausea, or vomiting. Objective - Vitals Vitals: Last Vital Signs Temp 37.9 C 12/30/18 06:38 Pulse 99 12/30/18 06:38 Resp 24 H 12/30/18 06:38 BP 153/70 H 12/30/18 06:38 Pulse Ox 93 12/30/18 06:38 - Exam Constitutional: Present: Alert, Oriented x3, Cooperative, Morbidly obese Respiratory: Present: lungs clear, decreased breath sounds Cardiovascular/Chest: Present: regular rate, rhythm, no murmur Abdomen: Present: Normal bowel sounds, soft, nontender Extremity: Present: lower extremity edema - 2+ Skin Exam: Present: other - Erythema fading and withdrawing from line of demarcation Assessment/Plan Plan Narrative: Improving. Continue antibiotics. Continue to work on strengthening. He is still to weak to stand on his own. Continue therapy. No changes planned for tomorrow. [facility] into [facility] for [facility] care discharge on tuesday if cellulitis continues to improve. - Problems/Diagnosis (1) Cellulitis Problem: Acute Qualifiers: Site of cellulitis: extremity Site of cellulitis of extremity: lower extremity Laterality: right Qualified Code(s): L03.115 - Cellulitis of right lower limb (2) Lower extremity weakness Problem: Acute (3) Falls Problem: Acute (4) Morbid obesity Problem: Chronic
[2018-12-30] MEDS: INSULIN ASPART 100 UNITS/ML VIAL SC SCH ×3 (07:19→17:09)
[2018-12-30 07:35] LABS: Hematocrit 41.2 % (42.0-52.0); Hemoglobin 13.6 gm/dL (13.5-18.0); Mean Cell Volume 95.8 fl (78-100); Mean Corpuscular Hemoglobin 31.6 pg (27-31); Mean Platelet Volume 9.9 fl (8-11.3); Neutrophil # 7.3 K/mm3 (1.3-6.0); Neutrophil % 76.9 % (42-75.0); Platelet Count 154 K/mm3 (150-450); Red Cell Distribution Width 14.5 % (11.5-14.0); White Blood Count 9.5 K/mm3 (4.0-10.5)
[2018-12-30 07:50] LABS: Albumin * 2.8 gm/dl (3.4-5.0); Anion Gap 16.7 mmol/L (6.8-13.8); Bilirubin, Total 0.7 mg/dL (0.0-1.1); Ca. Corrected For Albumin 9.8 mg/dL (8.4-10.2); Calcium * 9.2 mg/dL (7.9-10.9); Carbon Dioxide 21.9 mmol/L (24-32.6); Potassium 4.6 mmol/L (3.4-4.6); Total Protein 7.3 gm/dL (6.2-8.2)
[2018-12-30] MEDS: FLUTICASONE PROPION/SALMETEROL 14 PUFF DISK.W.DEV IH SCH ×2 (08:47→20:34)
[2018-12-30] MEDS: LISINOPRIL 5 MG TABLET PO SCH (08:47)
[2018-12-30] MEDS: TIOTROPIUM BROMIDE 5 CAP INHALER IH SCH (08:47)
[2018-12-30] MEDS: CEFUROXIME AXETIL 500 MG TABLET PO SCH ×2 (08:47→20:35)
[2018-12-30] MEDS: FUROSEMIDE 20 MG TABLET PO SCH (08:48)
[2018-12-30] MEDS: INSULIN GLARGINE,HUM.REC.ANLOG 100 UNITS/ML VIAL SC SCH ×2 (08:50→20:37)
[2018-12-30] MEDS: PREGABALIN 50 MG CAPSULE PO SCH ×2 (08:50→20:42)
[2018-12-30] MEDS: TAMSULOSIN HCL 0.4 MG CAP.SR.24H PO SCH (17:09)
[2018-12-30] MEDS: SIMVASTATIN 10 MG TABLET PO SCH (20:36)
[2018-12-30] MEDS: traZODone HCL 50 MG TABLET PO SCH (20:37)
[2018-12-31] MEDS: ACETAMINOPHEN 500 MG TABLET PO PRN ×2 (01:55→08:39)
[2018-12-31] MEDS: INSULIN ASPART 100 UNITS/ML VIAL SC SCH ×3 (07:21→17:11)
[2018-12-31] MEDS: LISINOPRIL 5 MG TABLET PO SCH (08:36)
[2018-12-31] MEDS: TIOTROPIUM BROMIDE 5 CAP INHALER IH SCH (08:36)
[2018-12-31] MEDS: FLUTICASONE PROPION/SALMETEROL 14 PUFF DISK.W.DEV IH SCH ×2 (08:36→20:19)
[2018-12-31] MEDS: CEFUROXIME AXETIL 500 MG TABLET PO SCH ×2 (08:37→20:20)
[2018-12-31] MEDS: FUROSEMIDE 20 MG TABLET PO SCH (08:37)
[2018-12-31] MEDS: INSULIN GLARGINE,HUM.REC.ANLOG 100 UNITS/ML VIAL SC SCH ×2 (08:37→20:19)
[2018-12-31] MEDS: PREGABALIN 50 MG CAPSULE PO SCH ×2 (08:40→20:26)
--- NOTE | 2018-12-31 16:47 | PN ---
Subjective - Date and Time Seen Date: 12/31/18 Time: 11:15 Subjective Narrative: He states he feels well. Denies pain in the right lower extremity. Tolerating diet Objective - Review of Systems Generalized/Overall Review: Denies: Chills, Fever Respiratory: Denies: Shortness of Breath Cardiac: Denies: Chest Pain Abdominal: Denies: Abdominal Pain Misc: All systems neg except as marked - Vitals Vitals: Last Vital Signs Temp 36.7 C 12/31/18 15:47 Pulse 79 12/31/18 15:47 Resp 17 12/31/18 15:47 BP 126/55 12/31/18 15:47 Pulse Ox 92 L 12/31/18 15:47 - Exam Constitutional: Present: Alert, Cooperative, Well developed, Well nourished, No distress ENT Exam: Present: hearing grossly normal Neck: Present: supple, trachea midline. Absent: lymphadenopathy (R), lymphadenopathy (L) Respiratory: Present: no respiratory distress, wheezing - Mild expiratory wheeze throughout bilaterally. Absent: crackles, rhonchi Cardiovascular/Chest: Present: normal peripheral pulses, regular rate, rhythm, no murmur, edema Abdomen: Present: Normal bowel sounds, soft, nontender, obese Extremity: Present: pedal edema - 1+ bilateral lower extremities Skin Exam: Present: normal color, warm/dry Neurologic: Present: alert, normal mood/affect Appearance: Present: appropriate appearance, appropriate insight Eye contact: Present: cooperative Thoughts: Present: normal mood /affect Assessment/Plan Plan Narrative: 68-year-old male with right lower extremity cellulitis. Improving. Continue with cefuroxime day 4. - Problems/Diagnosis (1) Cellulitis Problem: Acute Qualifiers: Site of cellulitis: extremity Site of cellulitis of extremity: lower extremity Laterality: right Qualified Code(s): L03.115 - Cellulitis of right lower limb (2) DM2 (diabetes mellitus, type 2) Problem: Chronic Qualifiers: Diabetes mellitus senior care insulin use: with termite control technician use Diabetes mellitus complication status: with skin complications Diabetes mellitus complication detail: with other skin ulcer Qualified Code(s): E11.622 - Type 2 diabetes mellitus with other skin ulcer; Z79.4 - computer terminal operator (current) use of insulin (3) HTN (hypertension) Problem: Chronic Qualifiers: Hypertension type: essential hypertension Qualified Code(s): I10 - Essential (primary) hypertension (4) COPD (chronic obstructive pulmonary disease) Problem: Chronic
[2018-12-31] MEDS: TAMSULOSIN HCL 0.4 MG CAP.SR.24H PO SCH (17:10)
[2018-12-31] MEDS: SIMVASTATIN 10 MG TABLET PO SCH (20:20)
[2018-12-31] MEDS: traZODone HCL 50 MG TABLET PO SCH (20:20)
[2018-12-31] MEDS ORDERED: POLYETHYLENE GLYCOL 3350 119 GM BTL ONE (20:25)
[2018-12-31] MEDS: SENNOSIDES 8.6 MG TABLET PO SCH (20:26)
[2018-12-31] MEDS: POLYETHYLENE GLYCOL 3350 17 GM PACKET PO SCH (20:27)
[2019-01-01] MEDS: ALBUTEROL SULFATE 2.5 MG/0.5 ML VIAL.NEB IH PRN (05:10)
[2019-01-01 06:33] LABS: Hematocrit 39.4 % (42.0-52.0); Hemoglobin 13.3 gm/dL (13.5-18.0); Mean Corpuscular Hemoglobin 31.7 pg (27-31); Mean Corpuscular Hgb Conc 33.8 g/dl (32-36); Mean Platelet Volume 10.3 fl (8-11.3); Neutrophil # 6.6 K/mm3 (1.3-6.0); Platelet Count 193 K/mm3 (150-450); Red Blood Count 4.19 M/mm3 (4.7-6.0); Red Cell Distribution Width 14.3 % (11.5-14.0); White Blood Count 9.8 K/mm3 (4.0-10.5)
[2019-01-01 06:46] LABS: Albumin * 2.6 gm/dl (3.4-5.0); Anion Gap 14.2 mmol/L (6.8-13.8); BUN/Creatinine Ratio 23.3 (9.0-21.6); Bilirubin, Total 0.6 mg/dL (0.0-1.1); Ca. Corrected For Albumin 10.3 mg/dL (8.4-10.2); Calcium * 9.5 mg/dL (7.9-10.9); Carbon Dioxide 25.1 mmol/L (24-32.6); Potassium 4.3 mmol/L (3.4-4.6); Total Protein 7.3 gm/dL (6.2-8.2)
[2019-01-01] MEDS: INSULIN ASPART 100 UNITS/ML VIAL SC SCH ×3 (07:25→17:23)
[2019-01-01] MEDS: ACETAMINOPHEN 500 MG TABLET PO PRN (07:29)
[2019-01-01] MEDS: FUROSEMIDE 20 MG TABLET PO SCH (09:16)
[2019-01-01] MEDS: FLUTICASONE PROPION/SALMETEROL 14 PUFF DISK.W.DEV IH SCH ×2 (09:16→20:13)
[2019-01-01] MEDS: INSULIN GLARGINE,HUM.REC.ANLOG 100 UNITS/ML VIAL SC SCH ×2 (09:16→20:13)
[2019-01-01] MEDS: LISINOPRIL 5 MG TABLET PO SCH (09:16)
[2019-01-01] MEDS: CEFUROXIME AXETIL 500 MG TABLET PO SCH ×2 (09:16→20:13)
[2019-01-01] MEDS: POLYETHYLENE GLYCOL 3350 17 GM PACKET PO SCH (09:17)
[2019-01-01] MEDS: TIOTROPIUM BROMIDE 5 CAP INHALER IH SCH (09:17)
[2019-01-01] MEDS: PREGABALIN 50 MG CAPSULE PO SCH ×2 (09:20→20:18)
[2019-01-01] MEDS: TAMSULOSIN HCL 0.4 MG CAP.SR.24H PO SCH (17:23)
[2019-01-01] MEDS: traZODone HCL 50 MG TABLET PO SCH (20:13)
[2019-01-01] MEDS: SIMVASTATIN 10 MG TABLET PO SCH (20:14)
[2019-01-01] MEDS: SENNOSIDES 8.6 MG TABLET PO SCH (20:15)
[2019-01-02] MEDS: ALBUTEROL SULFATE 2.5 MG/0.5 ML VIAL.NEB IH PRN (03:59)
[2019-01-02] MEDS: INSULIN ASPART 100 UNITS/ML VIAL SC SCH ×2 (07:16→12:04)
[2019-01-02] MEDS: CEFUROXIME AXETIL 500 MG TABLET PO SCH (08:29)
[2019-01-02] MEDS: PREGABALIN 50 MG CAPSULE PO SCH (08:29)
[2019-01-02] MEDS: POLYETHYLENE GLYCOL 3350 17 GM PACKET PO SCH (08:30)
[2019-01-02] MEDS: LISINOPRIL 5 MG TABLET PO SCH (08:30)
[2019-01-02] MEDS: INSULIN GLARGINE,HUM.REC.ANLOG 100 UNITS/ML VIAL SC SCH (08:39)
[2019-01-02] MEDS: FLUTICASONE PROPION/SALMETEROL 14 PUFF DISK.W.DEV IH SCH (08:40)
[2019-01-02] MEDS: FUROSEMIDE 20 MG TABLET PO SCH (08:40)
--- NOTE | 2019-01-02 10:27 | PN ---
Subjective - Date and Time Seen Date: 01/01/19 Time: 12:30 Subjective Narrative: Slade reports feeling better. Still very weak. Pain is controlled. Redness is better. No fever, chills, nausea, or vomiting. Objective - Vitals Vitals: Last Vital Signs Selected Entries 01/01/19 10:00 Temperature 36.4 C Pulse Rate 75 Respiratory Rate 18 Blood Pressure 121/63 O2 Sat by Pulse Oximetry 95 Oxygen Delivery Method Room Air - Exam Constitutional: Present: Alert, Oriented x3, Cooperative ENT Exam: Present: hearing grossly normal Respiratory: Present: lungs clear, decreased breath sounds Cardiovascular/Chest: Present: regular rate, rhythm, no murmur Abdomen: Present: Normal bowel sounds, soft, nontender, nondistended, obese Skin Exam: Present: other - Crusting on wounds to bilateral knee and bilateral king. Mild erythema around crusts. No drainage. Assessment/Plan Plan Narrative: Cellulitis improving, pain controlled. He remains significantly weak and needs skilled care at discharge. Anticipate discharge to SNF tomorrow. - Problems/Diagnosis (1) Cellulitis Problem: Acute Qualifiers: Site of cellulitis: extremity Site of cellulitis of extremity: lower extremity Laterality: right Qualified Code(s): L03.115 - Cellulitis of right lower limb (2) Lower extremity weakness Problem: Acute (3) Falls Problem: Acute (4) Morbid obesity Problem: Chronic
--- NOTE | 2019-01-02 10:44 | DS ---
(1) Cellulitis Problem: Acute Qualifiers: Site of cellulitis: extremity Site of cellulitis of extremity: lower extremity Laterality: right Qualified Code(s): L03.115 - Cellulitis of right lower limb (2) Lower extremity weakness Problem: Acute (3) Falls Problem: Acute (4) Morbid obesity Problem: Chronic Description of Stay: Slade is a 68 yo male admitted for left lower extremity cellulitis, pain, swelling, and severe lower extremity weakness. He was treated with an tibiotics and physical therapy was consulted. Over time the cellultis improved and strength began to improve. PT recommends more therapy however and he will be discharged to [facility] for SNF to further improve his strength. Procedures Performed: none Results and Findings: Lab Pending Results 12/27/18 20:27: WBC 16.2 H, RBC 4.42 L, Hgb 14.1, Hct 42.3, MCV 95.7, MCH 31.9 H, MCHC 33.3, RDW 14.2 H, Plt Count 171, MPV 9.4, Immature Gran % (Auto) 0.70 H, Immature Gran # (Auto) 0.12 H, Neutrophils % 85.6 H, Lymphocytes % 5.7 L, Monocytes % 7.7, Eosinophils % 0.0, Basophils % 0.3, Nucleated RBC % 0.0, Neutrophils # 13.9 H, Lymphocytes # 0.92 L, Monocytes # 1.2 H, Eosinophils # 0.0, Absolute Basophils 0.1 12/27/18 20:27: Sodium 132, Plasma Sodium 134, Potassium 4.6, Chloride 97, Carbon Dioxide 22.3 L, Anion Gap 17.3 H, BUN 22, Creatinine 1.18, Est GFR (Non- Af Amer) 66 D, BUN/Creatinine Ratio 18.6, Random Glucose 200 H, Calcium 9.2, Calcium Adj for Albumin 9.4, Total Bilirubin 0.9, AST 15, ALT 32, Alkaline Phosphatase 94, Total Protein 7.6, Albumin 3.3 L 12/27/18 20:27: Lactic Acid, Venous 1.4 12/27/18 21:59: Urine Color Yellow, Urine Appearance Slightly cloudy, Urine pH 6.0, Ur Specific [place] 1.020, Urine Protein 30 H, Urine Glucose (UA) Negative, Urine Ketones 15, Urine Blood 50 H, Urine Nitrate Negative, Urine Bilirubin Negative, Prot Sulfosalicylic Acd Negative, Urine Urobilinogen Normal, Ur Leukocyte Esterase 75 H, Urine RBC 5-10 H, Urine WBC Trace, Ur Epithelial Cells 0-5, Amorphous Sediment Few - 1+, Urine Bacteria 1+ H, Urine Culture Comments Culture to follow 12/28/18 08:50: WBC 13.4 H, RBC 4.23 L, Hgb 13.6, Hct 41.2 L, MCV 97.4, MCH 32.2 H, MCHC 33.0, RDW 14.6 H, Plt Count 166, MPV 10.0, Immature Gran % (Auto) 0.90 H, Immature Gran # (Auto) 0.12 H, Neutrophils % 75.6 H, Neutrophils % (Manual) 79 H, Lymphocytes % 10.3 L, Lymphocytes % (Manual) 13 L, Monocytes % 12.4 H, Monocytes % (Manual) 7, Eosinophils % 0.1, Eosinophils % (Manual) 1, Basophils % 0.7, Nucleated RBC % 0.0, Neutrophils # 10.2 H, Neutrophils # (Manual) 10.6 H, Lymphocytes # 1.39 L, Lymphocytes # (Manual) 1.7, Monocytes # 1.7 H, Monocytes # (Manual) 0.9, Eosinophils # 0.0, Eosinophils # (Manual) 0.1, Absolute Basophils 0.1, Platelet Estimate Normal, RBC Morphology Normal 12/28/18 08:50: Sodium 135, Plasma Sodium 137, Potassium 4.2, Chloride 101, Carbon Dioxide 25.4, Anion Gap 12.8, BUN 22, Creatinine 1.23, Est GFR (Non-Af Amer) 63, BUN/Creatinine Ratio 17.9, Random Glucose 216 H, Calcium 8.8, Calcium Adj for Albumin 9.4, Total Bilirubin 0.9, AST 17, ALT 29, Alkaline Phosphatase 84, Total Protein 7.2, Albumin 2.9 L 12/29/18 05:08: WBC 10.8 H, RBC 4.17 L, Hgb 13.4 L, Hct 39.9 L, MCV 95.7, MCH 32.1 H, MCHC 33.6, RDW 14.6 H, Plt Count 176, MPV 9.9, Immature Gran % (Auto) 0.50 H, Immature Gran # (Auto) 0.05 H, Neutrophils % 77.2 H, Lymphocytes % 11.2 L, Monocytes % 10.0 H, Eosinophils % 0.5, Basophils % 0.6, Nucleated RBC % 0.0, Neutrophils # 8.3 H, Lymphocytes # 1.20 L, Monocytes # 1.1 H, Eosinophils # 0.1, Absolute Basophils 0.1 12/29/18 05:08: Sodium 133, Plasma Sodium 134, Potassium 4.4, Chloride 100, Carbon Dioxide 23.7 L, Anion Gap 13.7, BUN 24 H, Creatinine 1.15, Est GFR (Non- Af Amer) 68, BUN/Creatinine Ratio 20.9, Random Glucose 169 H, Calcium 8.8, Calcium Adj for Albumin 9.4, Total Bilirubin 0.6, AST 18, ALT 26, Alkaline Phosphatase 80, Total Protein 7.2, Albumin 2.9 L 12/30/18 07:26: WBC 9.5, RBC 4.30 L, Hgb 13.6, Hct 41.2 L, MCV 95.8, MCH 31.6 H, MCHC 33.0, RDW 14.5 H, Plt Count 154, MPV 9.9, Immature Gran % (Auto) 0.40, Immature Gran # (Auto) 0.04 H, Neutrophils % 76.9 H, Lymphocytes % 8.9 L, Monocytes % 12.6 H, Eosinophils % 0.8, Basophils % 0.4, Nucleated RBC % 0.0, Neutrophils # 7.3 H, Lymphocytes # 0.84 L, Monocytes # 1.2 H, Eosinophils # 0.1, Absolute Basophils 0.0 12/30/18 07:26: Sodium 134, Plasma Sodium 136, Potassium 4.6, Chloride 100, Car bon Dioxide 21.9 L, Anion Gap 16.7 H, BUN 20, Creatinine 1.00, Est GFR (Non-Af Amer) 79, BUN/Creatinine Ratio 20.0, Random Glucose 198 H, Calcium 9.2, Calcium Adj for Albumin 9.8, Total Bilirubin 0.7, AST 21, ALT 26, Alkaline Phosphatase 91, Total Protein 7.3, Albumin 2.8 L 01/01/19 06:10: WBC 9.8, RBC 4.19 L, Hgb 13.3 L, Hct 39.4 L, MCV 94.0, MCH 31.7 H, MCHC 33.8, RDW 14.3 H, Plt Count 193, MPV 10.3, Immature Gran % (Auto) 0.80 H, Immature Gran # (Auto) 0.08 H, Neutrophils % 67.0, Lymphocytes % 17.5 L, Monocytes % 10.7 H, Eosinophils % 3.5 H, Basophils % 0.5, Nucleated RBC % 0.0, Neutrophils # 6.6 H, Lymphocytes # 1.72, Monocytes # 1.1 H, Eosinophils # 0.3, Absolute Basophils 0.1 01/01/19 06:10: Sodium 135, Plasma Sodium 136, Potassium 4.3, Chloride 100, Carbon Dioxide 25.1, Anion Gap 14.2 H, BUN 21, Creatinine 0.90, Est GFR (Non-Af Amer) 90, BUN/Creatinine Ratio 23.3 H, Random Glucose 180 H, Calcium 9.5, Calcium Adj for Albumin 10.3 H, Total Bilirubin 0.6, AST 31, ALT 51, Alkaline Phosphatase 93, Total Protein 7.3, Albumin 2.6 L Discharge Location: [facility] Disposition: SNF Condition: Stable Level of Care: SNF Discharge Activity: Activity as tolerated Discharge Diet: Consistent carbs Referrals: Issa Harris DO [Staff Physician] - Two Weeks (Make a clinic appointment, if I am able to see him at [facility] before clinic appt I will cancel this.) Problem Oriented Discharge Instructions to Patient/Family: Cellulitis, Adult, [id number] Additional Patient Instructions (free text): -Please make TCM appointment unless fci discharge. Thank you! Zari @ [phone]. Prescriptions (Any new or edited meds): Cefuroxime Axetil [Ceftin] 500 mg PO BID #10 tab Insulin Glargine,Hum.rec.anlog [Lantus Solostar] 30 unit SQ BID 30 Days insuln.pen Complete Home Medications List: Complete Home Medication List: Albuterol Sulfate 2.5 mg IH TID PRN 05/08/13 Furosemide [Lasix] 20 mg PO DAILY 05/08/13 HYDROcodone/ACETAMINOPHEN [[place] 5-325] 1 each PO Q4H PRN 05/08/13 Hydrophilic Ointment [Aquaphilic Ointment] 1 appl TP BID PRN 05/08/13 Insulin Aspart [Novolog] 40 unit SQ AC 05/08/13 Lisinopril [Zestril] 10 mg PO DAILY 05/08/13 Pregabalin [Lyrica] 150 mg PO BID 05/08/13 Simvastatin [Zocor] 10 mg PO HS 05/08/13 Tamsulosin HCl 0.4 mg PO DAILY 05/08/13 Tiotropium [place] [Spiriva] 1 cap IH DAILY 05/08/13 Trazodone HCl 50 mg PO HS 05/08/13 Mometasone/Formoterol [Dulera 100 Mcg/5 Mcg Inhaler] 1 inh IH BID 05/09/13 metFORMIN HCL [Glucophage] 1,000 mg PO BIDWM 05/09/13 Allopurinol [Zyloprim] 300 mg PO DAILY 12/28/18 Ascorbic Acid [Vitamin C] 500 mg PO BID 12/28/18 Bupropion HCl [Wellbutrin Sr] 150 mg PO BID 12/28/18 Capsaicin [High Potency Capsaicin] 42.5 gm TOPICAL QID PRN 12/28/18 Cyanocobalamin [Vitamin B-12] 1,000 mcg IM ONCE 12/28/18 Ferrous Sulfate 324 mg PO BID 12/28/18 Sennosides/Docusate Sodium [Docusate Sodium-Senna Tablet] 1 ea PO Q12H PRN 12/28/18 Acetaminophen [Tylenol] 1,000 mg PO Q6H PRN tab 01/02/19 Cefuroxime Axetil [Ceftin] 500 mg PO BID #10 tab 01/02/19 Insulin Glargine,Hum.rec.anlog [Lantus Solostar] 30 unit SQ BID 30 Days insuln.pen 01/02/19
[2019-01-02 10:58] VITALS: BP 122/60
== END 2019-01-02 12:36 | DRG 603 ==
LOC: ER 19:51 → MS 23:57
PROVIDERS: ADMIT Family Medicine; ATTEND Family Medicine
CPT/HCPCS: 36415; 71010; 71045; 73080; 73562; 80053; 81001; 83605; 85007; 85025; 87040; 87086; 94640; 94660; 97110; 97116; 97161; 97165; 97530; 99285